=== PATIENT | male | born 1990 | race Two or more races ===

== ENCOUNTER 2016-08-06 18:05 | Emergency (ER) | payer SELFPAY ==
[~2016-08-06] VITALS: Ht 193 cm; Wt 98.0 kg
[2016-08-06 18:31] VITALS: BP 17/85
[2016-08-06] MEDS ORDERED: SODIUM CHLORIDE 0.9% 1,000 ML IV ONE (20:04)
[2016-08-06] MEDS ORDERED: ONDANSETRON HCL 4MG/2ML VIAL IV STA (20:04)
[2016-08-06] MEDS ORDERED: PIPERACILLIN/TAZ 3.375G PREMIX 50 ML IV ONE (20:15)
== END 2016-08-06 20:55 | disposition left against medical advice (07) ==
LOC: ER 19:49
DX: M79.605 Pain in left leg (principal); L03.116 Cellulitis of left lower limb; I10 Essential (primary) hypertension
CPT/HCPCS: 99281; J7030